=== PATIENT | male | born 2000 | race Caucasian/White ===

== ENCOUNTER 2021-12-19 11:02 | Emergency (ER) | payer OTHER ==
[~2021-12-19] VITALS: Ht 177.8 cm; Wt 77.3 kg
[2021-12-19] MEDS ORDERED: IBUPROFEN 600 MG TABLET PO ONE (12:45)
[2021-12-19 13:07] VITALS: BP 118/72
== END 2021-12-19 13:49 | disposition home or self-care (01) ==
LOC: EMS 11:02
DX: S60.222A Contusion of left hand, initial encounter (principal); X50.0XXA Overexertion from strenuous movement or load, initial encounter; Y93.89 Activity, other specified; Y92.89 Other specified places as the place of occurrence of the external cause; Y99.8 Other external cause status
CPT/HCPCS: 99283